=== PATIENT | female | born 1940 | race Caucasian/White ===

== ENCOUNTER → 2016-09-09 07:23 | Outpatient (CLI) | payer MEDICARE, OTHER ==
[2016-04-07 11:43] VITALS: BMI 37.4
[~2016-09-09 07:23] MED LIST: ACTOS30 MG PO; ALPHAGAN 0.2%5 ML EACH EYE; BAYER CHEWABLE81 MG PO; CATAPRES TTS-20.2 MG TRANSDERM; CELEXA20 MG PO; CENTRUM COMPLE1 EACH PO; CITRACAL + D E1 EACH PO; FISH OIL 1,0001 CA1 PO; FLECAINIDE ACE100 MG PO; GLIMEPIRIDE2 MG PO; GLUCOPHAGE1000 MG PO; HUMULIN R100 U/ML SC; HYDROCODONE-APA1 TAB PO; HYTRIN10 MG PO; ISOSORBIDE DINI20 MG PO; LISINOPRIL-HCTZ1 T11 PO; LORTAB ELIXER PO; OXYBUTYNIN CHLOR5 MG PO; PHENERGAN25 M1 PO; PRAVACHOL40 MG PO; PRILOSEC10 M1 PO; PRILOSEC20 MG PO; PROAIR HFA8.5 GM INH; XALATAN 0.0052.5 ML EACH EYE; ZOFRAN4 MG PO
== END ==
LOC: D.RAD 07:23
DX: R13.10 Dysphagia, unspecified (principal)

== ENCOUNTER 2016-10-26 08:55 | Day surgery (SDC) | payer MEDICARE, OTHER ==
[~2016-10-26] VITALS: Ht 152.4 cm; Wt 96.8 kg
[~2016-10-26 08:55] MED LIST changes: -XALATAN 0.0052.5 ML EACH EYE
[2016-10-26 09:49] LABS: BASOPHILS 0.5 % (0.0-2.0); EOSINOPHILS 5.1 % (0-7); HEMOGLOBIN 12.1 g/dL (12-16); MCH 31.1 pg (26.0-34.0); MCHC 33.6 g/dL (31.0-37.0); MCV 92.5 fL (80.0-100.0); MEAN PLATELET VOLUME 8.6 fL (7.4-10.4); MONOCYTES 10.5 % (2-11); NEUTROPHILS 56.9 % (40-80); PLATELET COUNT 202 10x3/uL (130-400); RBC 3.89 10x6/uL (4.00-5.40); RDW 13.6 % (11.5-14.5); WBC 3.9 10x3/uL (4.8-10.8)
[2016-10-26 09:56] LABS: ANION GAP 10.8 mmol/L (8-16); CALCIUM 8.5 mg/dL (8.5-10.1); CARBON DIOXIDE 29.4 mmol/L (21.0-32.0); CREATININE - SERUM 1.9 mg/dL (0.6-1.3); POTASSIUM - SERUM 4.2 mmol/L (3.5-5.1)
[2016-10-26] MEDS ORDERED: XALATAN 0.0052.5 ML EACH EYE (10:38)
[2016-10-26 10:45] VITALS: BP 156/76; Ht 152.4 cm; Wt 96.8 kg
--- NOTE | 2016-10-26 13:15 | NUR ---
DISCHARGE INSTRUCTIONS REVIEWED WITH PATIENT, DISCHARGED HOME VIA WHEELCHAIR TO PRIVATE VEHICLE WITH SPOUSE
--- NOTE | 2016-11-03 12:04 | OP ---
PATIENT NAME: DANILO SALES MEDICAL RECORD: [id number] :42 LOCATION:[facility] ADMISSION DATE: SURGEON: AGATA ROBERT DO DATE OF OPERATION: 10/26/2016 PROCEDURE: EGD with balloon dilation less than 30 mm. INDICATION FOR PROCEDURE: Dysphagia, GERD, heartburn. MEDICATIONS: Propofol 100 mg IV and lidocaine 50 mg IV per anesthesia. INDICATIONS: For TIVA, obesity, obstructive sleep apnea and coronary artery disease. FINDINGS: Informed consent was given. The patient was made comfortable with the above medications. After reaching an adequate level of sedation by slow IV push, the patient was placed in the left side. The endoscope was then advanced under direct visualization through the mouth to the second portion of the duodenum. The upper, middle and distal thirds of the esophagus appeared normal. Right at the GE junction, there was an esophageal ring visualized. The ring measured approximately 14 mm in diameter. The scope did traverse the ring without dilation. There was some mild reflux esophagitis present just distal to the ring. The scope was advanced into the stomach and retroflexion was performed to view the cardia. There was a small sliding hiatal hernia present. The scope was then advanced into the antrum and prepyloric region where the body and antrum appeared normal. The scope was then advanced into the duodenum where the bulb and second portion of the duodenum appeared normal. Scope was withdrawn back into the stomach and a 16 to 18 mm dilating balloon was placed through the channel. The scope was withdrawn back into the site where the ring was visualized. Dilation was performed first at 16 mm and subsequently at 17 mm maximal diameter. No fluoroscopy or guidewire was used. POST PROCEDURE: Endoscopic appearances were satisfactory and the maneuver was successful. Scope was withdrawn from the patient. The patient tolerated the procedure well and there were no complications. ESTIMATED BLOOD LOSS: Less than 5 cc. IMPRESSION: 1. Esophageal ring at the GE junction, dilated up to 17 mm. 2. Reflux esophagitis consistent with gastroesophageal reflux disease. 3. Small sliding hiatal hernia. PLAN AND RECCOMENDATIONS: 1. Continue current medications. 2. Continue current diet. 3. Be sure to chew food well prior to swallowing. 4. Repeat EGD with dilation as needed for symptoms. 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
== END 2016-10-26 13:15 | disposition home or self-care (01) ==
LOC: D.OPS 08:55
PROVIDERS: Anesthesiology
DX: K22.2 Esophageal obstruction (principal); K21.0 Gastro-esophageal reflux disease with esophagitis; K44.9 Diaphragmatic hernia without obstruction or gangrene; R12 Heartburn; E66.9 Obesity, unspecified; G47.33 Obstructive sleep apnea (adult) (pediatric); I25.10 Atherosclerotic heart disease of native coronary artery without angina pectoris; Z68.41 Body mass index [BMI] 40.0-44.9, adult

== ENCOUNTER 2016-11-20 17:37 | Emergency (ER) | payer MEDICARE, OTHER ==
[2016-10-26 10:45] VITALS: BMI 41.6
[~2016-11-20 17:37] MED LIST changes: +XALATAN 0.0052.5 ML EACH EYE
== END 2016-11-20 19:16 | disposition home or self-care (01) ==
LOC: D.ER 17:37
DX: S50.02XA Contusion of left elbow, initial encounter (principal); W19.XXXA Unspecified fall, initial encounter; Y93.89 Activity, other specified; Y92.89 Other specified places as the place of occurrence of the external cause; S50.312A Abrasion of left elbow, initial encounter; E11.9 Type 2 diabetes mellitus without complications; E78.5 Hyperlipidemia, unspecified; I10 Essential (primary) hypertension; Z95.0 Presence of cardiac pacemaker